=== PATIENT | male | born 1940 | race Caucasian/White ===

== ENCOUNTER 2018-07-13 15:49 | Observation (INO) ==
--- NOTE | 2018-07-13 16:03 | Emergency Department Note ---
Disposition Clinical Impression: Chest pain Qualifiers: Chest pain type: other chest pain Qualified Code(s): R07.89 - Other chest pain Disposition: Admitted As Inpatient Condition: Fair Time of Disposition: 18:03 Chest Pain HPI - General Chief Complaint: ED Chest Pain Stated Complaint: chest pain Time Seen by Provider: 07/13/18 15:59 Vital Signs Reviewed: Yes Nursing Notes Reviewed: Yes - History of Present Illness HPI Narrative: 77yo male presents from home for evaluation of chest pain. Intermittent for the past 3 days. Lasting seconds with each occurrence. Located left parasternal with radiation to his right chest and throat. Present at rest and with exertion. Unchanged with movement or breathing. PMH: GERD, HTN No hx CAD, ACS, DM. ROS: Pos: as above Neg: fever, chills, dyspnea, diaphoresis, nausea, vomiting. No abdominal pain, unusual back pain, upper extremity numbness/tingling/weakness. Severity scale (1-10): 0 - Related Data Allergies Allergy/AdvReac Type Severity Reaction Status Date / Time No Known Allergies Allergy Verified 07/13/18 15:56 All systems ED: reviewed and negative except as stated. Review of Systems: As Per HPI Chest Pain PMH - Past Medical History Medical history: Reports: hypertension, seizures Psychiatric history: Reports: no psych history - Social History Smoking Status: Former smoker Alcohol use: Reports: none Drug use: Reports: none Physical Exam Vital Signs Reviewed General: Patient is alert, oriented, and in no acute distress. Head: atraumatic, normocephalic Eye: normal appearance, PERRL, EOMI, no scleral icterus, no conjunctival injection ENT: mucous membranes moist, normal external ear exam Neck: normal inspection, trachea midline, full ROM Chest: normal inspection, symmetric chest rise Respiratory: Good respiratory effort. Bilateral breath sounds are clear without wheezing, crackles, or rhonchi. Cardiovascular: Regular rate and rhythm. No clicks, rubs, gallops, or murmors. Normal heart sounds. Bilateral radial and posterior tibial pulses 2/4 and equal. Abdomen: Bowel sounds present normoactive x-4 quadrants. Abdomen is soft, nondistended, and nontender. No guarding or rebound. No organomegaly noted. Musculoskeletal: Spontaneously moving all extremities. Skin: warm, dry, intact. Neuro: Alert and oriented x4. Sensation light touch intact. Psych: Patient's affect is appropriate for situation. Course Course Narrative: Holter monitor Jul 2016: Impression: 1. Baseline rhythm normal sinus. 2. Frequent PVCs. 3. Frequent PACs. 4. Symptoms correlate with sinus rhythm . Electronically Signed On 07-31-16 16:07:10 EDT by Bola Dodge During my interview, patient did have approximately 2 second episode of his chest pain. He did not appear markedly comfortable however, he did stop ourr conversation and hold his left chest for several seconds until it resolves. Chest x-ray is unremarkable. EKG and troponin are unremarkable. Lab work otherwise unremarkable. Patient's heart score is 3, still concerning for atypical chest pain given his age. He is in agreement to admission for chest pain rule out ACS. Next I discussed the above the [facility]. He agrees to accept the patient for chest pain rule out ACS. EKG dated 13 July 2018 at 16:11 interpreted as sinus rhythm with rate of 67. [place] 193. QTC 466. Normal axis. Nonspecific ST-T changes. Left anterior fascicular block. Compared to previous EKG dated 07/27/2016 showing no acute ischemic changes or comparison. Chest X-Ray 07/13/18 16:00 IMPRESSION: Negative portable chest. D/ / Myke Beatty MD / Myke Beatty MD Interpreting Provider: Myke Beatty MD Vital Signs Temperature 98.0 F 07/13/18 15:55 Pulse Rate 66 07/13/18 15:55 Respiratory Rate 16 07/13/18 15:55 Blood Pressure 160/83 07/13/18 15:55 O2 Sat by Pulse Oximetry 96 07/13/18 15:55 Temperature 98.0 F 07/13/18 16:09 Pulse Rate 63 07/13/18 18:01 Respiratory Rate 14 07/13/18 18:01 Blood Pressure 154/90 07/13/18 18:01 O2 Sat by Pulse Oximetry 95 07/13/18 18:01 Oxygen Delivery Oxygen Delivery Room Air Chest Pain - Lab Data Result diagrams: 07/13/18 16:24 07/13/18 16:24 Lab Results 07/13/18 07/13/18 07/13/18 Range/Units 16:24 16:24 16:24 WBC 7.4 (4.3-11.1) K/mcL RBC 5.30 (4.19-5.50) M/mcL Hgb 15.8 (12.9-16.9) g/dL Hct 46.4 (37.5-50.1) % MCV 87.5 (83.0-100.0) fL MCH 29.8 (28.0-33.3) pg MCHC 34.1 (31.6-35.5) g/dL RDW 12.6 (11.5-14.5) % Plt Count 193 (140-400) K/mcL MPV 9.4 (9.4-12.4) fL Immature Gran % 0.7 (0-4) % Seg Neutrophils % 64.4 % Lymphocytes % 22.1 % Monocytes % 9.9 % Eosinophils % 2.4 % Basophils % 0.5 % Neutrophils # 4.8 (1.6-8.9) K/mcL Lymphocytes # 1.6 (0.6-4.6) K/mcL Monocytes # 0.7 (0.0-1.3) K/mcL Eosinophils # 0.2 (0.0-0.6) K/mcL Basophils # 0.0 (0.0-0.2) K/mcL D-Dimer 650 H (0-500) ng/mLFEU Sodium 139 (136-145) mEq/L Potassium 3.9 (3.5-5.1) mEq/L Chloride 106 (98-107) mEq/L Carbon Dioxide 25 (23-29) mEq/L BUN 19 (8-23) mg/dL Creatinine 0.92 (0.70-1.30) mg/dL Est GFR ( Amer) > 60 (> 60) Est GFR (Non-Af Amer) > 60 (> 60) BUN/Creatinine Ratio 21 (6-26) Glucose 89 (70-105) mg/dL Calculated Osmolality 290 (280-300) Calcium 9.5 (8.6-10.3) mg/dL Troponin I < 0.03 (< 0.04) ng/mL Heart Score - Score History: Slightly Suspicious EKG: Normal Age: Greater than 65 Risk Factors: 1-2 risk factors Troponin: Less than normal limit HEART Score Total: 3 Attestation Statement - Attestation Attestation: Patient was seen with resident physician. I reviewed the history, physical, assessment and plan, and agree with the findings. I also personally evaluated this patient and had [id number] time with this patient. 77-year-old male who presents emergency Department chief complaint of chest pain. Intermittent for the last 3 days comes at rest and also while exerting himself. Patient states the pain starts in left-sided sharp radiates over to the right shoulder. Last seconds at a time. No real shortness of breath or diaphoresis with it. No abdominal pain. No swelling in the extremities. Review systems as above remainder negative. Physical exam vital signs are stable. ENT is unremarkable. Heart regular rhythm and rate. Lungs clear. Abdomen soft nontender. Extremities unremarkable. Neurologically intact. Skin no rashes. ED course EKG shows no acute ischemic changes. Workup for cardiac issues was negative. Age-adjusted d-dimer was okay will discuss with the hospitalist service. Patient had intermittent pain throughout his stay. He did not require nitroglycerin or other intervention at this time. Even this is an atypical presentation for chest pain, due to the patient's age, we felt it was important that he have a full cardiac workup as an inpatient. Patient was agreeable. We spoke with the hospitalist service agreed to admit the patient. He remained hemodynamically stable. I agree with resident physician assessment and plan.
[2018-07-13 16:43] LABS: Basophils % 0.5 %; Eosinophils # 0.2 K/mcL (0.0-0.6); Eosinophils % 2.4 %; Hematocrit 46.4 % (37.5-50.1); Hemoglobin 15.8 g/dL (12.9-16.9); Immature Granulocytes % 0.7 % (0-4); Lymphocytes # 1.6 K/mcL (0.6-4.6); Lymphocytes % 22.1 %; Mean Corpuscular HGB Conc 34.1 g/dL (31.6-35.5); Mean Corpuscular Hemoglobin 29.8 pg (28.0-33.3); Mean Corpuscular Volume 87.5 fL (83.0-100.0); Mean Platelet Volume 9.4 fL (9.4-12.4); Monocytes # 0.7 K/mcL (0.0-1.3); Monocytes % 9.9 %; Neutrophils # 4.8 K/mcL (1.6-8.9); Platelet Count 193 K/mcL (140-400); Red Cell Distribution Width 12.6 % (11.5-14.5); Segmented Neutrophils % 64.4 %
[2018-07-13 17:00] LABS: BUN/Creatinine Ratio 21 (6-26); Blood Urea Nitrogen 19 mg/dL (8-23); Calcium 9.5 mg/dL (8.6-10.3); Carbon Dioxide 25 mEq/L (23-29); Chloride 106 mEq/L (98-107); Glucose 89 mg/dL (70-105); Osmolality,Calculated 290 (280-300); Potassium 3.9 mEq/L (3.5-5.1); Sodium 139 mEq/L (136-145); Troponin I < 0.03 ng/mL (< 0.04); eGFR For Non-African Americans > 60 (> 60)
[2018-07-13] MEDS ORDERED: Naloxone 0.4 MG/ML INJ IVP PRN (17:51)
--- NOTE | 2018-07-13 18:23 | Internal Med History&Physical ---
Date of Encounter: 07/13/18 Time of Encounter: 18:20 Internal Medicine - H&P: HPI Chief complaint: chest pain Admitted From: Home Plans for Post Hospital Care: Home History of present illness: Mr. Villafana is a 77 year old male with a past medical history of HLD and hypertension. Presents to [facility] ED for evaluation of intermittent chest pain lasting 3 days. Patient is having left-sided parasternal chest pain with radiation to the mid chest and left neck. Chest pain described as sharp and lasting only seconds. This occurs at rest and with exertion, has no aggravating or alleviating factors. He denies any shortness of breath, diaphoresis, dizziness, fatigue, weakness. Denies fevers, chills, dyspnea, nausea, vomiting, abdominal pain, unusual back or abdominal pain, unilateral lower extremity swelling/pain. Chest x-ray in the ED negative for acute pulmonary process. Initial troponin negative. Denies any history of CAD and denies any prior cardiac workup. His only cardiac history reported is asymptomatic sinus bradycardia. For this he had a 2 week Holter monitor with benign findings. Risk factors include hypertension and hyperlipidemia. Admit and monitor overnight. Plan is to get an echocardiogram and serial troponins as well as monitor on telemetry. Plan of care discussed with patient who agrees Past Med Surg Social Fam HX - Past Medical History Medical history: hypertension, seizures Additional medical history: subdural hematom followed by one seizure Psychiatric history: no psych history - Past Surgical History Additional surgical history: bilateral carpel tunnel, precancerous lesion removed from face. - Social History Smoking Status: Former smoker Smokeless Tobacco Status: No Alcohol use: none Drug use: none - Family History Mother Hx Family Endocrine Disorder: Yes (DM) Sister Hx Family Cancer: Yes (Lung) Brother Hx Family Endocrine Disorder: Yes (DM) Internal Medicine - H&P: Meds 3 Allergy/AdvReac Type Severity Reaction Status Date / Time No Known Allergies Allergy Verified 07/13/18 15:56 All Systems PM: A 10-system review of systems was performed and is negative for pertinent findings except as documented above in the HPI. - Constitutional Constitutional: as per HPI - Cardiovascular Cardiovascular ROS IM: as per HPI - Respiratory Respiratory: as per HPI - Gastrointestinal Gastrointestinal: as per HPI - Musculoskeletal Musculoskeletal ROS IM: as per HPI - Constitutional Vitals: Temp Pulse Resp BP Pulse Ox 98.0 F 63 14 154/90 95 07/13/18 16:09 07/13/18 18:01 07/13/18 18:01 07/13/18 18:01 07/13/18 18:01 General appearance: Present: A&O X 3 Exam: . - Head Head exam: Present: atraumatic, normocephalic - Eye Eye exam: Present: PERRL, conjuntiva pink, sclera anicteric Pupils: Present: PERRL - Neck Neck exam general surgery: Present: supple, trachea midline. Absent: lymphadenopathy - Respiratory Respiratory exam: Present: CTAB. Absent: accessory muscle use, rales, rhonchi, wheezes - Cardiovascular Cardiovascular exam: Present: RRR, +S1, +S2. Absent: diastolic murmur, gallop, rubs, systolic murmur - GI/Abdominal GI/Abdominal exam: Present: normal bowel sounds, soft, no peritoneal signs. Absent: distended, tenderness - Extremities Exam Extremities exam: Present: warm, radial pulses palpable and symmetrical. Absent : calf tenderness, cyanotic, pedal edema - Neurological Exam Neurological exam: Present: CN II-XII intact, oriented X3, no focal deficits. Absent: pronater drift, facial droop, speech deficit - Skin Skin exam: Present: dry, intact Internal Med - H&P Results - Labs CBC & Chem 7: 07/13/18 16:24 07/13/18 16:24 - EKG Data -: EKG Interpreted by Myself EKG shows normal: sinus rhythm Rate: normal - EKG Data Interpretation IM: other EKG comments: Nonspecific ST-T wave changes otherwise normal sinus rhythm. 07/13/18 18:25 - Impressions Impressions Chest X-Ray 07/13/18 16:00 IMPRESSION: Negative portable chest. D/ / Myke Beatty MD / Myke Beatty MD Interpreting Provider: Myke Beatty MD - Assessment and plan (1) Chest pain Current Visit: Yes Status: Acute Assessment and plan: Presents with atypical chest pain presentation Reports having 3 day history of intermittent left sided retrosternal chest pain with radiation into mid chest and left neck Denies any dyspnea, diaphoresis, nausea, vomiting, dizziness, fatigue Reports chest pain as sharp and lasts only a few seconds, no aggravating or alleviating factors, self-limiting At the time of my assessment the chest pain has resolved and not returned and the patient is resting comfortably in bed Denies ever having any cardiac workup No history of CAD Risk factors include hyperlipidemia and HTN Heart score of 3 Continue to monitor overnight on telemetry, obtain serial troponins, and obtain echocardiogram, PRN nitroglycerin SL for chest pain, obtain lipid panel in the morning. Start 81 mg aspirin now, start 40 mg simvastatin now Qualifiers: Chest pain type: unspecified Qualified Code(s): R07.9 - Chest pain, unspecified (2) HTN (hypertension) Current Visit: Yes Status: Acute Assessment and plan: per hx not on anti-HTN meds PRN IV hydralazine for SBP >160 Qualifiers: Hypertension type: unspecified Qualified Code(s): I10 - Essential (primary ) hypertension (3) HLD (hyperlipidemia) Current Visit: Yes Status: Acute Assessment and plan: pe rhx, start simvastatin now in the setting of chest pain, lipid panel in am Qualifiers: Hyperlipidemia type: unspecified Qualified Code(s): E78.5 - Hyperlipidemia , unspecified (4) Elevated d-dimer Current Visit: Yes Status: Acute Assessment and plan: Age adjusted d-dimer appropriate Wells score of 0 Not in respiratory distress, no inspiratory pain no prior history of DVTs or PE Low suspicion for PE (5) DVT prophylaxis Current Visit: Yes Status: Acute Assessment and plan: early ambulation - Time Spent With Patient Total time spent is greater than 50% in coordination of care (as documented) at patient's floor/unit and/or counseling patient: less than 15 minutes
[2018-07-13] MEDS ORDERED: Nitroglycerin 0.4 MG TAB.SUBL SL PRN (18:33)
[2018-07-13] MEDS: Aspirin 81 MG TAB.CHEW PO SCH (19:34)
[2018-07-14 05:10] LABS: Basophils % 0.6 %; Eosinophils # 0.2 K/mcL (0.0-0.6); Eosinophils % 3.5 %; Hematocrit 47.6 % (37.5-50.1); Hemoglobin 16.2 g/dL (12.9-16.9); Immature Granulocytes % 0.6 % (0-4); Lymphocytes # 1.4 K/mcL (0.6-4.6); Lymphocytes % 21.9 %; Mean Corpuscular Hemoglobin 29.6 pg (28.0-33.3); Mean Platelet Volume 9.8 fL (9.4-12.4); Monocytes # 0.6 K/mcL (0.0-1.3); Neutrophils # 4.2 K/mcL (1.6-8.9); Platelet Count 178 K/mcL (140-400); Red Blood Count 5.47 M/mcL (4.19-5.50); Red Cell Distribution Width 12.5 % (11.5-14.5); Segmented Neutrophils % 64.4 %
[2018-07-14 05:34] LABS: BUN/Creatinine Ratio 20 (6-26); Blood Urea Nitrogen 17 mg/dL (8-23); Calcium 9.4 mg/dL (8.6-10.3); Carbon Dioxide 24 mEq/L (23-29); Chloride 106 mEq/L (98-107); Cholesterol 162 mg/dL (< 200); Glucose 112 mg/dL (70-105); HDL Cholesterol 27 mg/dL (40-59); LDL Cholesterol,Calculated 94 mg/dL (0-99); Osmolality,Calculated 290 (280-300); Potassium 3.8 mEq/L (3.5-5.1); Sodium 139 mEq/L (136-145); Triglycerides 203 mg/dL (< 150); eGFR For Non-African Americans > 60 (> 60)
[2018-07-14] MEDS: Aspirin 81 MG TAB.CHEW PO SCH (08:44)
[2018-07-14] MEDS ORDERED: Lisinopril 20 MG TABLET PO SCH (09:00)
[2018-07-14] MEDS ORDERED: TRIAMTERENE 25 MG PO SCH (09:00)
--- NOTE | 2018-07-14 09:45 | Discharge Summary ---
Orders not resulted at time of discharge: Pending orders 07/13/18 18:16 EV echocardiogram Stat 07/13/18 20:13 EKG [ECG 12 lead ECG] [ECG] Stat Date of Encounter: 07/14/18 Time of Encounter: 09:43 - Discharge Diagnosis (1) Chest pain Priority: Primary Status: Acute Assessment and Plan: Presents with atypical chest pain presentation Reports having 3 day history of intermittent left sided retrosternal chest pain with radiation into mid chest and left neck Denies any dyspnea, diaphoresis, nausea, vomiting, dizziness, fatigue Reports chest pain as sharp and lasts only a few seconds, no aggravating or alleviating factors, self-limiting At the time of my assessment the chest pain has resolved and not returned and the patient is resting comfortably in bed Denies ever having any cardiac workup No history of CAD Risk factors include hyperlipidemia and HTN Heart score of 3 Continue to monitor overnight on telemetry, obtain serial troponins, and obtain echocardiogram, PRN nitroglycerin SL for chest pain, obtain lipid panel in the morning. Start 81 mg aspirin now, start 40 mg simvastatin now 07/14--reports resolution of chest pain this morning. On presentation his chest pain is atypical and of low concern for ACS given minimal risk factors, chest pain is nonradiating and the patient has no prior CAD or cardiac history. ECG per my review without any concerning ST-T wave changes. The pain is somewhat reproducible as he reports that overnight he had a small 1 second sharp twinge of chest pain along left lower rib while rolling over onto his left side. Consider musculoskeletal etiology. The patient did report this morning that he has been using a manual rototiller for his [employer] garden for 3 days in a row for multiple hours per day prior to presentation. Serial troponins were obtained and found to be negative 3 less than 0.03. Echocardiogram pending. He has had an uneventful hospital course and remains symptomatically stable. He has been instructed to follow-up with PCP within one week of discharge. Additionally, has been instructed to return to the ED should he began to experience frequent prolonged episodes of chest pain especially when accompanied with shortness of breath, dizziness, weakness, diaphoresis, nausea or vomiting. The patient verbalized understanding and denies any further questions at this time. He has been instructed to start taking an 81 mg aspirin daily. TTE- LVEF 60%. Normal LV chamber size, wall thickness and function. Atypical septal motion consistent with bundle branch block. Mild left ventricular diastolic dysfunction. Normal right ventricular structure and function. Mild aortic regurgitation. Qualifiers: Chest pain type: unspecified Qualified Code(s): R07.9 - Chest pain, unspecified (2) HTN (hypertension) Priority: Secondary Status: Acute Assessment and Plan: per hx 07/14--BP remained stable throughout stay, continue home anti-HTN meds DC Qualifiers: Hypertension type: unspecified Qualified Code(s): I10 - Essential (primary ) hypertension (3) HLD (hyperlipidemia) Priority: Secondary Status: Acute Assessment and Plan: per hx Lipid panel 07/24/18 triglycerides 203 Cholesterol 162 LDL 94 VLDL 41 HDL 27 Cholesterol/HDL ratio 6.0 Qualifiers: Hyperlipidemia type: unspecified Qualified Code(s): E78.5 - Hyperlipidemia , unspecified (4) Elevated d-dimer Priority: Secondary Status: Acute Assessment and Plan: Age adjusted d-dimer appropriate Wells score of 0 Not in respiratory distress, no inspiratory pain no prior history of DVTs or PE Low suspicion for PE (5) DVT prophylaxis Priority: Secondary Status: Acute Assessment and Plan: early ambulation, increase activity. Active patient; low risk Hospital course: Mr. Villafana is a 77 year old male presents with 3 days of atypical left retrosternal chest pain without radiation, shortness of breath, diaphoresis, nausea, vomiting, dizziness, fatigue. No prior history of NV or CAD. Serial troponins found to be negative 3, ECG without any ST-T wave changes concerning for ischemia. Heart score 3 due to age greater than 60 and history of hypertension and hyperlipidemia. Consider musculoskeletal etiology as the patient is reporting he was tending his garden with a manual rototiller x 3 days for multiple hours daily prior to presentation. Also, he notes a small twinge of chest pain overnight while rolling over in bed along the left lower rib in the retrosternal area. Results of echocardiogram pending at time of discharge. He has had an uneventful hospital course has remained hemodynamically stable throughout. He has been instructed to follow-up with his PCP within 1 week of discharge. Additionally, has been instructed to return to the ED should he began to experience frequent prolonged episodes of chest pain especially when accompanied with shortness of breath, dizziness, weakness, diaphoresis, nausea or vomiting. The patient verbalized understanding and denies any further questions at this time. He has been instructed to start taking an 81 mg aspirin daily. Referral to cardiology for outpatient follow-up. Discharge discussed with: patient, nurse - Time Spent with Patient Total time spent providing and/or coordinating discharge services: Less than 30 minutes - Discharge Medications Home Medications: Lisinopril [Zestril] 20 mg PO DAILY 07/13/18 [History] Meloxicam [Mobic] 15 mg PO DAILY 07/13/18 [History] Triamterene [Dyrenium] 25 mg PO DAILY 07/13/18 [History] Aspirin 81 mg PO DAILY tab.chew 07/14/18 [Rx] Allergies/Adverse Reactions: 3 Allergy/AdvReac Type Severity Reaction Status Date / Time No Known Allergies Allergy Verified 07/13/18 15:56 Date of admission: 07/13/18 18:07 Primary care physician: Екатерина Velazquez MD Discharging clinician: Jose Malave Anticipated date of discharge: 07/14/18 - Constitutional Vitals: Temp Pulse Resp BP Pulse Ox 97.7 F 61 16 131/86 96 07/14/18 06:49 07/14/18 06:49 07/14/18 06:49 07/14/18 06:49 07/14/18 06:49 General appearance: Present: A&O X 3 Exam: PHYSICAL EXAMINATION: GENERAL: The patient is a well-developed, well-nourished elderly male in no apparent distress. He is alert and oriented x3. HEENT: Head is normocephalic and atraumatic. Extraocular muscles are intact. Pupils are equal, round, and reactive to light and accommodation. NECK: Supple. No carotid bruits. No lymphadenopathy or thyromegaly. LUNGS: Clear to auscultation be/L AP and L. HEART: Regular rate and rhythm, S1, S2 without murmurs, rubs or gallops. ABDOMEN: Soft, nontender, and nondistended. Positive bowel sounds. No hepatosplenomegaly was noted. No thrills, or bruits noted on exam; low suspicion for AAA EXTREMITIES: Without any cyanosis, clubbing, rash, lesions or edema. - Patient Status Disposition: Home, Self-Care Condition: Fair Functional capacity at discharge: independent ambulation Overall status at discharge: patient is back to baseline - Discharge Instructions Instructions: Chest Pain (DC), Chronic Hypertension (DC) Follow Up With: Екатерина Velazquez MD [Primary Care Provider] - Forms: ED Satisfaction Letter - Diet and Activity Activity: increase activity as tolerated, resume usual activities as tolerated Diet: low fat, low cholesterol, low salt diet
[2018-07-14 11:17] VITALS: BP 131/76
--- NOTE | 2018-07-16 11:39 | Electrocardiograph Report ---
[address] [place] [address] Test Date: 2018-07-13 Pat Name: Jose Villafana Department: EXAM5 Room: 3B43 Gender: M Maintenance Parts Technician: : 1940 Requested By: Karthik Husain Order Number: [id number] Reading MD: Chaparro Beckford Measurements Intervals [place] Rate: 67 P: -24 SC: 193 QRS: -26 QRSD: 115 T: 78 QT: 441 QTc: 466 Interpretive Statements Sinus rhythm Nonspecific intraventricular conduction delay Possible septal infarct, age undetermined Electronically Signed On 07-16-2018 11:37:19 EDT by Chaparro Beckford
--- NOTE | 2018-07-16 17:34 | Electrocardiograph Report ---
[place] [id number] Test Date: 2018-07-13 Pat Name: Jose Villafana Department: 113 Room: 3B43 Gender: M Social Media Marketing Analyst: : 1940 Requested By: Pal Gonzalez Order Number: [id number] Reading MD: Chaparro Beckford Measurements Intervals [place] Rate: 69 P: 31 CA: 193 QRS: -38 QRSD: 126 T: 81 QT: 430 QTc: 449 Interpretive Statements SINUS RHYTHM IVCD MARKED LEFT AXIS DEVIATION LEFT VENTRICULAR HYPERTROPHY AND ST-T CHANGE Electronically Signed On 07-16-2018 17:32:46 EDT by Chaparro Beckford
== END 2018-07-14 12:15 | disposition home or self-care (01) ==
LOC: EMEROOARM 15:49 → 3BNU 15:49
PROVIDERS: ADMIT Internal Medicine; ATTEND Internal Medicine

== ENCOUNTER 2019-09-03 08:50 | Inpatient (IN) ==
[2019-09-03] MEDS ORDERED: CeFAZolin Syr 2,000MG/20 ML 2,000 MG/20 ML SYRINGE IVPB ONE (09:18)
[2019-09-03] MEDS ORDERED: Ringers Solution, Lactated 1,000 ML IVC SCH ×2 (09:30→13:00)
[2019-09-03] MEDS ORDERED: *HR* FentaNYL (PF) 100 MCG/2 ML VIAL ONE (09:55)
[2019-09-03] MEDS ORDERED: *HR* Propofol 200 MG/20 ML VIAL IVP ONE (09:56)
[2019-09-03] MEDS ORDERED: *HR* Midazolam HCl 2 MG/2 ML VIAL ONE (09:56)
[2019-09-03] MEDS ORDERED: Lidocaine -MPF 2% 2 ML VIAL ONE (09:56)
[2019-09-03] MEDS ORDERED: ROPIVACAINE/PF/NS 0.25% 1 EACH SYRINGE INTRAART ONE (10:05)
[2019-09-03] MEDS ORDERED: Ropivacaine/PF 0.5% 30 ML VIAL ONE (10:05)
[2019-09-03] MEDS ORDERED: Ethanol\\Acetic Acid\\Na Ace\\Ben 1,000 ML IRRIG.SOLN IR ONE (10:30)
[2019-09-03] MEDS ORDERED: *HR* Succinylcholine 200 MG/10 ML VIAL IVP ONE (11:16)
[2019-09-03] MEDS ORDERED: EPHEDrine 50 MG/ML VIAL ONE (11:23)
[2019-09-03] MEDS ORDERED: *HR* PHENYLEPHRINE 1,000 MCG/10 ML SYRINGE IVP ONE (11:27)
[2019-09-03] MEDS ORDERED: Ondansetron 4 MG/2 ML VIAL ONE (11:48)
[2019-09-03] MEDS ORDERED: Dexamethasone 4 MG/ML VIAL ONE (11:48)
[2019-09-03] MEDS ORDERED: Naloxone 0.4 MG/ML INJ IVP PRN (13:00)
[2019-09-03] MEDS ORDERED: MOM Conc 10 ML UD.LIQ PO PRN (13:00)
[2019-09-03] MEDS ORDERED: *HR* OxyCODONE Immed Rel 5 MG TABLET PO PRN (13:00)
[2019-09-03] MEDS ORDERED: Temazepam 15 MG CAPSULE PO PRN (13:00)
[2019-09-03] MEDS ORDERED: *HR* OxyCODONE/APAP 5/325 TABLET PO PRN (13:00)
[2019-09-03] MEDS ORDERED: traMADol 50 MG TABLET PO PRN (13:00)
[2019-09-03] MEDS ORDERED: Sennosides 8.6 MG TABLET PO PRN (13:00)
[2019-09-03] MEDS ORDERED: Ondansetron 4 MG/2 ML VIAL IVP PRN (13:00)
[2019-09-03 13:05] LABS: Hemoglobin 15.8 g/dL (12.9-16.9)
[2019-09-03 14:58] VITALS: BP 96/70
[2019-09-03] MEDS ORDERED: *HR* Enoxaparin 30 MG/0.3 ML SYRINGE SQ ONE (16:00)
[2019-09-03] MEDS ORDERED: *HR* Enoxaparin 30 MG/0.3 ML SYRINGE SQ SCH ×2 (18:00)
[2019-09-04] MEDS ORDERED: Valsartan 80 MG TABLET PO SCH (09:00)
[2019-09-04] MEDS ORDERED: Aspirin 81 MG TAB.CHEW PO SCH (09:00)
[2019-09-04] MEDS ORDERED: Diltiazem CD (24hr) 120 MG CAPSULE PO SCH (09:00)
[2019-09-04] MEDS ORDERED: Multivit/Ca/Min/Fe/FA 1 TAB TABLET PO SCH (09:00)
[2019-09-04] MEDS ORDERED: (Omega-3/Dha/Epa/Fish Oil [Fish Oil 1,000 Mg Softgel]) PO SCH (09:00)
== END 2019-09-03 17:02 | disposition home or self-care (01) | DRG 483 ==
LOC: SAMDAY 08:50 → 3NENU 12:57
PROVIDERS: ADMIT Orthopaedic Surgery; ATTEND Orthopaedic Surgery